=== PATIENT | male | born 1980 | race African-American/Black ===

== ENCOUNTER 2016-11-23 18:34 | Inpatient (IN) | payer OTHER ==
[2016-11-23 18:54] VITALS: BMI 31.0
--- NOTE | 2016-11-23 19:16 | HP ---
COWS - Scale Resting Pulse: 0= [place] 80 or Below Sweatin= Chills/Flushing Restless Observation: 0= Sits Still (xanax) Pupil Size: 1= Pupils >than Normal Bone or Joint Aches: 1= Mild Discomfort Runny Nose/ Eye Tearin= Nasal Congestion GI Upset > 30mins: 1= Stomach Cramp Tremor Observation: 2= Slight Tremor Visible Yawning Observation: 1= 1-2x During Session Anxiety or Irritability: 2=Irritable/Anxious Goose Flesh Skin: 3=Piloerection COWS Score: 13 CIWA Score - CIWA Score Nausea/Vomitin-No Nausea/No Vomiting Muscle Tremors: 3 Anxiety: 3 Agitation: 3 Paroxysmal Sweats: 1-Minimal Palms Moist Orientation: 3-Disoriented Date>2 days Tacttile Disturbances: 0-None Auditory Disturbances: 0-None Visual Disturbances: 0-None Headache: 1-Very Mild CIWA-Ar Total Score: 14 Admission ROS BHS - HPI Chief Complaint: withdrawal sx Allergies/Adverse Reactions: Allergies Allergy/AdvReac Type Severity Reaction Status Date / Time No Known Allergies Allergy Verified 11/23/16 18:45 History of Present Illness: 35 years old male with long history of opiate, xanax nicotine dependence, denies medical issue has schizophrenia - history of auditory hallucination, is admitted to detox Exam Limitations: No Limitations - Ebola screening Have you traveled outside of the country in the last 21 days: No Have you had contact with anyone from an Ebola affected area: No Have you been sick,other than usual withdrawal symptoms: No Do you have a fever: No - Review of Systems Constitutional: Chills, Weight Stable EENT: reports: No Symptoms Reported Respiratory: reports: No Symptoms reported, Cough, SOB with Exertion Cardiac: reports: No Symptoms Reported GI: reports: Poor Fluid Intake, Abdominal cramping : reports: No Symptoms Reported Musculoskeletal: reports: No Symptoms Reported Integumentary: reports: No Symptoms Reported Neuro: reports: Seizure (2015 last episode), Tremors Endocrine: reports: No Symptoms Reported Hematology: reports: No Symptoms Reported Psychiatric: reports: Judgement Intact, Anxious, Depressed Other Systems: Reviewed and Negative Patient History - Patient Medical History Hx Anemia: No Hx Asthma: No Hx Chronic Obstructive Pulmonary Disease (COPD): No Hx Cancer: No Hx Cardiac Disorders: No Hx Congestive Heart Failure: No Hx Hypertension: No Hx Hypercholesterolemia: No Hx Pacemaker: No HX Cerebrovascular Accident: No Hx Seizures: Yes (2016) Hx Dementia: No Hx Diabetes: No Hx Gastrointestinal Disorders: No Hx Liver Disease: No Hx Genitourinary Disorders: No Hx Sexually Transmitted Disorders: No Hx Renal Disease (ESRD): No Hx Thyroid Disease: No Hx Human Immunodeficiency Virus (HIV): No Hx Hepatitis C: No Hx Depression: No Hx Suicide Attempt: No Hx Bipolar Disorder: No Hx Schizophrenia: Yes - Patient Surgical History Past Surgical History: Yes Hx Neurologic Surgery: No Hx Cataract Extraction: No Hx Cardiac Surgery: No Hx Lung Surgery: Yes (chest tube at age 17) Hx Breast Surgery: No Hx Breast Biopsy: No Hx Abdominal Surgery: No Hx Appendectomy: No Hx Cholecystectomy: No Hx Genitourinary Surgery: No Hx Orthopedic Surgery: No Anesthesia Reaction: No - PPD History Previous Implant?: Yes Documented Results: Negative w/o proof Implanted On Prior R Admission?: No PPD to be Administered?: Yes - Smoking Cessation Smoking history: Current every day smoker Have you smoked in the past 12 months: Yes Aproximately how many cigarettes per day: 20 Cigars Per Day: 0 Hx Chewing Tobacco Use: No Initiated information on smoking cessation: Yes 'Breaking Loose' booklet given: 11/23/16 - Substance & Tx. History Hx Alcohol Use: Yes Hx Substance Use: Yes Substance Use Type: Alcohol, Cocaine, Marijuana, Opiates, Tranquilizers Hx Substance Use Treatment: Yes - Substances Abused Heroin Route: Inhalation Frequency: Daily Amount used: 7 bags Age of first use: 19 Date of Last Use: 11/23/16 Alcohol Route: Oral Frequency: Daily Amount used: 2 pints vodka , 6 beer Age of first use: 12 Date of Last Use: 11/23/16 Alprazolam (Xanax) Route: Oral Frequency: Daily Amount used: 14 mg Age of first use: 26 Date of Last Use: 11/23/16 Family Disease History - Family Disease History Family Disease History: Other: Father (no contact), Mother (), Brother ( ) Admission Physical Exam BHS - Vital Signs Vital Signs: Vital Signs - 24 hr 11/23/16 18:51 Temperature 97.1 F L Pulse Rate 75 Respiratory 20 Rate Blood Pressure 95/65 - Physical General Appearance: Yes: Appropriately Dressed, Mild Distress, Tremorous, Irritable, Sweating, Anxious HEENTM: Yes: Hearing grossly Normal, Normal ENT Inspection, Normocephalic, Normal Voice Respiratory: Yes: Chest Non-Tender, Lungs Clear, Normal Breath Sounds, No Respiratory Distress, No Accessory Muscle Use Neck: Yes: Supple, Trachea in good position Breast: Yes: Breasts Symetrical Cardiology: Yes: Regular Rhythm, Regular Rate, S1, S2 Abdominal: Yes: Non Tender, Soft Genitourinary: Yes: Within Normal Limits Back: Yes: Normal Inspection Musculoskeletal: Yes: full range of Motion, Gait Steady Extremities: Yes: Normal Range of Motion, Non-Tender, Tremors Neurological: Yes: Alert, Motor Strength 5/5, Normal Response, Depressed Affect Integumentary: Yes: Warm, Moist Lymphatic: Yes: Within Normal Limits - Diagnostic (1) Alcohol dependence with uncomplicated withdrawal Current Visit: Yes Status: Acute (2) Opioid dependence with withdrawal Current Visit: Yes Status: Acute (3) Sedative, hypnotic or anxiolytic dependence with withdrawal, uncomplicated Current Visit: Yes Status: Acute (4) Nicotine dependence Current Visit: Yes Status: Acute Qualifiers: Nicotine product type: cigarettes Substance use status: in withdrawal Qualified Code(s): F17.213 - Nicotine dependence, cigarettes, with withdrawal (5) Schizophrenia Current Visit: Yes Status: Suspected Qualifiers: Schizophrenia type: disorganized schizophrenia Qualified Code(s): F20.1 - Disorganized schizophrenia Comment: zyprexa trazodone Cleared for Admission S - Detox or Rehab [facility] Level of Care: Medically Managed Detox Regimen/Protocol: Methadone/Valium S Breath Alcohol Content Breath Alcohol Content: 0 Urine Drug Screen - Results Drug Screen Negative: No Urine Drug Screen Results: THC-Marijuana, DRE-Cocaine, OPI-Opiates, BZO- Benzodiazepines, OXY-Oxycodone
[2016-11-23] MEDS ORDERED: diazePAM 5 MG TABLET PO ONE (19:26)
[2016-11-23] MEDS ORDERED: METHADONE HCL 10 MG TABLET (FOR DETOX USE ONLY) PO ONE ×2 (19:26→23:00)
[2016-11-23] MEDS ORDERED: guaiFENesin/D-METHORPHAN HB 10 ML UNIT-DOSE CUPS PO PRN (19:26)
[2016-11-23] MEDS ORDERED: MAG HYDROX/AL HYDROX/SIMETH 30 ML UNIT-DOSE CUP PO PRN (19:26)
[2016-11-23] MEDS ORDERED: P-EPHED 60MG/TRIPROLIDI 2.5MG TABLET PO PRN (19:26)
[2016-11-23] MEDS ORDERED: MENTHOL/PHENOL 1 EACH UD MM PRN (19:26)
[2016-11-23] MEDS ORDERED: ACETAMINOPHEN 325 MG TABLET (FP) PO PRN (19:26)
[2016-11-23] MEDS ORDERED: MAGNESIUM HYDROX 2400MG/30ML ORAL SUSPENSION 30 ML CUP PO PRN (19:26)
[2016-11-23] MEDS ORDERED: IBUPROFEN 400 MG TABLET (FP) PO PRN (19:26)
[2016-11-23] MEDS ORDERED: LOPERAMIDE HCL 2 MG CAPSULE PO PRN (19:26)
[2016-11-23] MEDS ORDERED: MAGNESIUM CITRATE 300 ML BOTTLE PO PRN (19:26)
--- NOTE | 2016-11-23 20:46 | PN ---
S Progress Note Note: ekg showed inverted t in 2,3,avf,v3 asymptomatic no chest pain,no sob,no dizziness Vital Signs Temperature 97.1 F L 11/23/16 18:51 Pulse Rate 75 11/23/16 18:51 Respiratory Rate 20 11/23/16 18:51 Blood Pressure 95/65 11/23/16 18:51 O2 Sat by Pulse Oximetry (%) will repeat ekg in 07.00am vital signs monitoring continue detox regimen
[2016-11-23] MEDS: THIAMINE HCL 100 MG TABLET (FP) PO SCH (22:15)
[2016-11-23] MEDS: diazePAM 5 MG TABLET PO SCH (22:15)
[2016-11-23 22:44] LABS: URINE APPEARANCE CLEAR; URINE BILIRUBIN NEGATIVE (NEGATIVE); URINE BLOOD NEGATIVE (NEGATIVE); URINE COLOR YELLOW; URINE GLUCOSE (UA) NEGATIVE (NEGATIVE); URINE KETONE TRACE (NEGATIVE); URINE NITRITE NEGATIVE (NEGATIVE); URINE PROTEIN NEGATIVE (NEGATIVE); URINE UROBILINOGEN NEGATIVE E.U./dl (0.2-1.0)
[2016-11-23 22:47] LABS: URINE LEUK ESTERASE TRACE (NEGATIVE)
[2016-11-23 22:49] LABS: URINE MUCUS FEW; URINE RBC 2 /hpf (0-3); URINE WBC 5 /hpf (3-5)
[2016-11-24] MEDS: diazePAM 5 MG TABLET PO SCH ×3 (05:47→22:12)
--- NOTE | 2016-11-24 07:00 | PN ---
BHS Progress Note Note: repeat ekg showed inverted t in 3 ,avf,v3 no changed from 11/23/26 asymptomatic no chest pain,no sob,no dizziness
[2016-11-24] MEDS ORDERED: METHADONE HCL 10 MG TABLET (FOR DETOX USE ONLY) PO SCH (10:00)
[2016-11-24] MEDS: NICOTINE 21 MG/24 HOURS TOPICAL PATCH TD SCH (10:11)
[2016-11-24] MEDS: PRENATAL VITAMINS W/ FOLIC ACID TABLET (FP) PO SCH (10:11)
[2016-11-24 10:12] LABS: MCH 29.9 pg (25.7-33.7); MCHC 32.7 g/dl (32.0-35.9); MEAN CELL VOLUME 91.6 fl (80-96); MEAN PLT VOLUME 8.5 fl (7.5-11.1); PLATELET COUNT 188 K/MM3 (134-434); RDW 14.1 % (11.9-15.9); WHITE BLOOD COUNT 7.3 K/mm3 (4.0-10.0)
--- NOTE | 2016-11-24 10:45 | CONSULT ---
[facility] Psychiatric Consult - Data Date of interview: 11/24/16 Admission source: [facility] Identifying data: First admission to [facility] for this 36 y/o AA male seeking detox treatment on for heroin,marijuana,cocainealcohol and benzodiazepine (xanax) dependence.Patient is single without children,homelesss, unemployed and supported on food stamps. Substance Abuse History: - Smoking Cessation. Smoking history: Current every day smoker. Have you smoked in the past 12 months: Yes. Aproximately how many cigarettes per day: 20. Cigars Per Day: 0. Hx Chewing Tobacco Use: No. Initiated information on smoking cessation: Yes. 'Breaking Loose' booklet given : 11/23/16. - Substance & Tx. History. Hx Alcohol Use: Yes. Hx Substance Use : Yes. Substance Use Type: Alcohol, Cocaine, Marijuana, Opiates, Tranquilizers. Hx Substance Use Treatment: Yes. - Substances Abused. Heroin. Route: Inhalation. Frequency: Daily. Amount used: 7 bags. Age of first use: 19. Date of Last Use: 11/23/16. Alcohol. Route: Oral. Frequency: Daily. Amount used: 2 pints vodka , 6 beer. Age of first use: 12. Date of Last Use: 11/23/16. Alprazolam (Xanax). Route: Oral. Frequency: Daily. Amount used: 14 mg. Age of first use: 26. Date of Last Use: 11/23/16. Confirmed by the patient in my interview. Medical History: Patient endorses good general health. Psychiatric History: Patient denies history of mental illness,psychiatric hospitalizations or OPD care.No reported history of suicide attempts.Mr Agrawal could be an unreliable historian in view of [facility] report that mentions PTSD and schizophrenia. Physical/Sexual Abuse/Trauma History: Patient denies. Additional Comment: Urine Drug Screen Results: THC-Marijuana, DRE-Cocaine, OPI- Opiates, BZO-Benzodiazepines, OXY-Oxycodone.Noted. Mental Status Exam - Mental Status Exam Alert and Oriented to: Time, Place, Person Cognitive Function: Good Patient Appearance: Well Groomed Mood: Euthymic (calm) Affect: Normal Range Patient Behavior: Fatigued, Appropriate, Cooperative Speech Pattern: Clear Voice Loudness: Normal Thought Process: Goal Oriented Thought Disorder: Not Present Hallucinations: Denies Suicidal Ideation: Denies Homicidal Ideation: Denies Insight/Judgement: Poor Sleep: Poorly, Difficulty falling asleep Appetite: Good Muscle strength/Tone: Normal Gait/Station: Normal Psychiatric Findings - Problem List ([place] 1, 2,3) (1) Alcohol dependence with uncomplicated withdrawal Current Visit: Yes Status: Acute (2) Opioid dependence with withdrawal Current Visit: Yes Status: Acute (3) Sedative, hypnotic or anxiolytic dependence with withdrawal, uncomplicated Current Visit: Yes Status: Acute (4) Nicotine dependence Current Visit: Yes Status: Acute Qualifiers: Nicotine product type: cigarettes Substance use status: in withdrawal Qualified Code(s): F17.213 - Nicotine dependence, cigarettes, with withdrawal (5) Marijuana dependence Current Visit: Yes Status: Acute (6) Cocaine dependence Current Visit: Yes Status: Acute (7) Insomnia Current Visit: Yes Status: Acute - Initial Treatment Plan Initial Treatment Plan: Psychoeducation.Detoxification.Zolpidem 10 mg po hs prn.Patient made aware of the risk od parasomnias.he agrees with this plan.Observation.
[2016-11-24 11:05] LABS: ALBUMIN 3.1 g/dl (3.4-5.0); ALK PHOS 44 U/L (45-117); ANION GAP 7 (8-16); BILIRUBIN,TOTAL 0.3 mg/dL (0.2-1.0); CALCIUM 8.4 mg/dL (8.5-10.1); CO2 28 mmol/L (21-32); GLUCOSE,RANDOM 79 mg/dL (74-106); SGOT/AST 17 U/L (15-37); SGPT/ALT 21 U/L (12-78); TOT PROT 5.7 g/dl (6.4-8.2)
--- NOTE | 2016-11-24 12:13 | PN ---
[facility] CIWA - CIWA Score Nausea/Vomitin-No Nausea/No Vomiting Muscle Tremors: 4-Moderate,w/Arms Extend Anxiety: 4-Mod. Anxious/Guarded Agitation: 4-Moderately Restless Paroxysmal Sweats: 1-Minimal Palms Moist Orientation: 0-Oriented Tacttile Disturbances: 3-Moderate Itch/Numb/Burn Auditory Disturbances: 0-None Visual Disturbances: 0-None Headache: 0-None Present CIWA-Ar Total Score: 16 BHS COWS - Scale Resting Pulse: 0= [place] 80 or Below Sweatin= Chills/Flushing Restless Observation: 3= Extraneous Movement Pupil Size: 2= Moderately Dilated Bone or Joint Aches: 4=Acute Joint/Muscle Pain Runny Nose/ Eye Tearin= Nasal Congestion GI Upset > 30mins: 1= Stomach Cramp Tremor Observation of Outstretched Hands: 1= Tremor [place], Not Seen Yawning Observation: 1= 1-2x During Session Anxiety or Irritability: 2=Irritable/Anxious Goose Flesh Skin: 0=Smooth Skin COWS Score: 16 [facility] Progress Note (SOAP) Subjective: ANXIETY,SWEATS,IRRITABILITY,FATIGUE. Objective: 11/24/16 12:11 Vital Signs Temperature 96.6 F L 11/24/16 09:17 Pulse Rate 67 11/24/16 09:17 Respiratory Rate 20 11/24/16 09:17 Blood Pressure 99/67 11/24/16 09:17 O2 Sat by Pulse Oximetry (%) Laboratory Last Values WBC 7.3 K/mm3 (4.0-10.0) 11/24/16 07:00 RBC 4.23 M/mm3 (4.00-5.60) 11/24/16 07:00 Hgb 12.7 GM/dL (11.7-16.9) 11/24/16 07:00 Hct 38.7 % (35.4-49) 11/24/16 07:00 MCV 91.6 fl (80-96) 11/24/16 07:00 MCHC 32.7 g/dl (32.0-35.9) 11/24/16 07:00 RDW 14.1 % (11.9-15.9) 11/24/16 07:00 Plt Count 188 K/MM3 (134-434) 11/24/16 07:00 MPV 8.5 fl (7.5-11.1) 11/24/16 07:00 Sodium 141 mmol/L (136-145) 11/24/16 07:00 Potassium 4.1 mmol/L (3.5-5.1) 11/24/16 07:00 Chloride 106 mmol/L (98-107) 11/24/16 07:00 Carbon Dioxide 28 mmol/L (21-32) 11/24/16 07:00 Anion Gap 7 (8-16) L 11/24/16 07:00 BUN 11 mg/dL (7-18) 11/24/16 07:00 Creatinine 1.0 mg/dL (0.7-1.3) 11/24/16 07:00 Creat Clearance w eGFR > 60 (>60) 11/24/16 07:00 Random Glucose 79 mg/dL (74-106) 11/24/16 07:00 Calcium 8.4 mg/dL (8.5-10.1) L 11/24/16 07:00 Total Bilirubin 0.3 mg/dL (0.2-1.0) 11/24/16 07:00 AST 17 U/L (15-37) 11/24/16 07:00 ALT 21 U/L (12-78) 11/24/16 07:00 Alkaline Phosphatase 44 U/L (45-117) L 11/24/16 07:00 Total Protein 5.7 g/dl (6.4-8.2) L 11/24/16 07:00 Albumin 3.1 g/dl (3.4-5.0) L 11/24/16 07:00 Urine Color Yellow 11/23/16 19:38 Urine Appearance Clear 11/23/16 19:38 Urine pH 5.0 (5.0-8.0) 11/23/16 19:38 Ur Specific [place] 1.024 (1.001-1.035) 11/23/16 19:38 Urine Protein Negative (NEGATIVE) 11/23/16 19:38 Urine Glucose (UA) Negative (NEGATIVE) 11/23/16 19:38 Urine Ketones Trace (NEGATIVE) H 11/23/16 19:38 Urine Blood Negative (NEGATIVE) 11/23/16 19:38 Urine Nitrite Negative (NEGATIVE) 11/23/16 19:38 Urine Bilirubin Negative (NEGATIVE) 11/23/16 19:38 Urine Urobilinogen Negative E.U./dl (0.2-1.0) 11/23/16 19:38 Ur Leukocyte Esterase Trace (NEGATIVE) H 11/23/16 19:38 Urine RBC 2 /hpf (0-3) 11/23/16 19:38 Urine WBC 5 /hpf (3-5) 11/23/16 19:38 Ur Epithelial Cells Rare /hpf (FEW) 11/23/16 19:38 Urine Mucus Few 11/23/16 19:38 LABS NOTED Assessment: 11/24/16 12:13 WITHDRAWAL SX Plan: CONTINUE DETOX
--- NOTE | 2016-11-24 13:55 | EKG ---
Test Reason : Blood Pressure : / mmHG Vent. Rate : 070 BPM Atrial Rate : 070 BPM P-R Int : 130 ms QRS Dur : 090 ms QT Int : 386 ms P-R-T Axes : 056 008 -39 degrees QTc Int : 416 ms NORMAL SINUS RHYTHM SEPTAL INFARCT , AGE UNDETERMINED ABNORMAL ECG NO PREVIOUS ECGS AVAILABLE Confirmed by ELISABETH GARDINER MD ([id number]) on 11/24/2016 1:54:30 PM Referred By: Confirmed By:ELISABETH GARDINER MD
--- NOTE | 2016-11-24 13:56 | EKG ---
Test Reason : Blood Pressure : / mmHG Vent. Rate : 062 BPM Atrial Rate : 062 BPM P-R Int : 140 ms QRS Dur : 100 ms QT Int : 420 ms P-R-T Axes : 053 -08 -37 degrees QTc Int : 426 ms NORMAL SINUS RHYTHM INCOMPLETE RIGHT BUNDLE BRANCH BLOCK SEPTAL INFARCT (CITED ON OR BEFORE 23-NOV-2016) ABNORMAL ECG WHEN COMPARED WITH ECG OF 23-NOV-2016 20:08, QUESTIONABLE CHANGE IN INITIAL FORCES OF SEPTAL LEADS Confirmed by ELISABETH GARDINER MD ([id number]) on 11/24/2016 1:56:26 PM Referred By: Confirmed By:ELISABETH GARDINER MD
[2016-11-24 19:23] LABS: URINE APPEARANCE CLEAR; URINE BILIRUBIN NEGATIVE (NEGATIVE); URINE BLOOD NEGATIVE (NEGATIVE); URINE COLOR STRAW; URINE GLUCOSE (UA) NEGATIVE (NEGATIVE); URINE KETONE NEGATIVE (NEGATIVE); URINE NITRITE NEGATIVE (NEGATIVE); URINE PROTEIN NEGATIVE (NEGATIVE); URINE UROBILINOGEN NEGATIVE E.U./dl (0.2-1.0)
[2016-11-24 19:25] LABS: URINE LEUK ESTERASE TRACE (NEGATIVE)
[2016-11-24 19:28] LABS: URINE RBC <1 /hpf (0-3); URINE WBC 1 /hpf (3-5)
[2016-11-24] MEDS: THIAMINE HCL 100 MG TABLET (FP) PO SCH (22:12)
[2016-11-24] MEDS: diphenhydrAMINE HCL 50 MG CAPSULE PO PRN (23:40)
[2016-11-25] MEDS: diazePAM 5 MG TABLET PO PRN ×3 (00:40→17:23)
[2016-11-25] MEDS: diazePAM 5 MG TABLET PO SCH ×2 (10:07→22:20)
[2016-11-25] MEDS: NICOTINE 21 MG/24 HOURS TOPICAL PATCH TD SCH (10:07)
[2016-11-25] MEDS: PRENATAL VITAMINS W/ FOLIC ACID TABLET (FP) PO SCH (10:07)
[2016-11-25] MEDS: METHADONE HCL 5 MG TABLET (FOR DETOX USE ONLY) PO SCH (10:07)
--- NOTE | 2016-11-25 10:11 | PN ---
[facility] CIWA - CIWA Score Nausea/Vomitin-No Nausea/No Vomiting Muscle Tremors: 3 Anxiety: 4-Mod. Anxious/Guarded Agitation: 3 Paroxysmal Sweats: 3 Orientation: 0-Oriented Tacttile Disturbances: 1-Very Mild Itch/Numbness Auditory Disturbances: 0-None Visual Disturbances: 0-None Headache: 0-None Present CIWA-Ar Total Score: 14 S COWS - Scale Resting Pulse: 0= [place] 80 or Below Sweatin=Flushed/Facial Moisture Restless Observation: 1= Difficult to Sit Still Pupil Size: 0= Normal to Room Light Bone or Joint Aches: 2= Severe Diffuse Aches Runny Nose/ Eye Tearin= Runny Nose/Eyes GI Upset > 30mins: 2= Nausea/Diarrhea Tremor Observation of Outstretched Hands: 2= Slight Tremor Visible Yawning Observation: 1= 1-2x During Session Anxiety or Irritability: 2=Irritable/Anxious Goose Flesh Skin: 0=Smooth Skin COWS Score: 14 [facility] Progress Note (SOAP) Subjective: Anxiety,tremors,sweating,interrupted sleep,restless Objective: 11/25/16 10:09 Vital Signs - 8 hr 11/25/16 11/25/16 11/25/16 03:30 06:04 09:09 Temperature 96.2 F L 97.1 F L Pulse Rate 60 69 Respiratory 18 18 18 Rate Blood Pressure 96/65 112/68 Laboratory Tests 11/23/16 11/23/16 11/24/16 07:00 19:38 07:00 WBC 7.3 RBC 4.23 Hgb 12.7 Hct 38.7 MCV 91.6 MCHC 32.7 RDW 14.1 Plt Count 188 MPV 8.5 Sodium Potassium Chloride Carbon Dioxide Anion Gap BUN Creatinine Creat Clearance w eGFR Random Glucose Calcium Total Bilirubin AST ALT Alkaline Phosphatase Total Protein Albumin Urine Color Yellow Urine Appearance Clear Urine pH 5.0 Ur Specific [place] 1.024 Urine Protein Negative Urine Glucose (UA) Negative Urine Ketones Trace H Urine Blood Negative Urine Nitrite Negative Urine Bilirubin Negative Urine Urobilinogen Negative Ur Leukocyte Esterase Trace H Urine RBC 2 Urine WBC 5 Ur Epithelial Cells Rare Urine Mucus Few RPR Titer Hepatitis C Antibody <0.1 11/24/16 11/24/16 11/24/16 07:00 07:00 14:00 WBC RBC Hgb Hct MCV MCHC RDW Plt Count MPV Sodium 141 Potassium 4.1 Chloride 106 Carbon Dioxide 28 Anion Gap 7 L BUN 11 Creatinine 1.0 Creat Clearance w eGFR > 60 Random Glucose 79 Calcium 8.4 L Total Bilirubin 0.3 AST 17 ALT 21 Alkaline Phosphatase 44 L Total Protein 5.7 L Albumin 3.1 L Urine Color Straw Urine Appearance Clear Urine pH 6.0 Ur Specific [place] 1.005 Urine Protein Negative Urine Glucose (UA) Negative Urine Ketones Negative Urine Blood Negative Urine Nitrite Negative Urine Bilirubin Negative Urine Urobilinogen Negative Ur Leukocyte Esterase Trace H Urine RBC <1 Urine WBC 1 Ur Epithelial Cells Rare Urine Mucus RPR Titer Nonreactive Hepatitis C Antibody labs noted Assessment: 11/25/16 10:10 Withdrawal sx. Plan: Continue detox
--- NOTE | 2016-11-25 14:14 | EKG ---
Test Reason : Blood Pressure : / mmHG Vent. Rate : 068 BPM Atrial Rate : 068 BPM P-R Int : 128 ms QRS Dur : 104 ms QT Int : 386 ms P-R-T Axes : 046 -13 -39 degrees QTc Int : 410 ms NORMAL SINUS RHYTHM INCOMPLETE RIGHT BUNDLE BRANCH BLOCK ANTEROSEPTAL INFARCT (CITED ON OR BEFORE 23-NOV-2016) T WAVE ABNORMALITY, CONSIDER LATERAL ISCHEMIA ABNORMAL ECG WHEN COMPARED WITH ECG OF 24-NOV-2016 06:33, NO SIGNIFICANT CHANGE WAS FOUND Confirmed by MODESTO PLATT MD ([id number]) on 11/25/2016 2:14:26 PM Referred By: Confirmed By:MODESTO PLATT MD
[2016-11-25] MEDS: NICOTINE POLACRILEX 4 MG GUM BC PRN (18:18)
[2016-11-25] MEDS: THIAMINE HCL 100 MG TABLET (FP) PO SCH (22:20)
[2016-11-25] MEDS: diphenhydrAMINE HCL 50 MG CAPSULE PO PRN (22:21)
[2016-11-26] MEDS: diazePAM 5 MG TABLET PO PRN ×2 (02:27→17:19)
[2016-11-26] MEDS: METHADONE HCL 5 MG TABLET (FOR DETOX USE ONLY) PO SCH (10:19)
[2016-11-26] MEDS: PRENATAL VITAMINS W/ FOLIC ACID TABLET (FP) PO SCH (10:19)
[2016-11-26] MEDS: diazePAM 5 MG TABLET PO SCH ×2 (10:19→22:17)
[2016-11-26] MEDS: NICOTINE 21 MG/24 HOURS TOPICAL PATCH TD SCH (10:19)
[2016-11-26] MEDS: NICOTINE POLACRILEX 4 MG GUM BC PRN (10:20)
--- NOTE | 2016-11-26 12:00 | PN ---
[facility] Progress Note (SOAP) Subjective: Sweating, Tremors, Body Aches, Interrupted sleep. Objective: PT. A & O X 1 (DISORIENTED ABOUT DAY/DATE AND ABOUT LOCATION). 11/26/16 11:58 Vital Signs Temperature 96.1 F L 11/26/16 09:34 Pulse Rate 55 L 11/26/16 09:34 Respiratory Rate 18 11/26/16 09:34 Blood Pressure 109/69 11/26/16 09:34 O2 Sat by Pulse Oximetry (%) Laboratory Last Values WBC 7.3 K/mm3 (4.0-10.0) 11/24/16 07:00 RBC 4.23 M/mm3 (4.00-5.60) 11/24/16 07:00 Hgb 12.7 GM/dL (11.7-16.9) 11/24/16 07:00 Hct 38.7 % (35.4-49) 11/24/16 07:00 MCV 91.6 fl (80-96) 11/24/16 07:00 MCHC 32.7 g/dl (32.0-35.9) 11/24/16 07:00 RDW 14.1 % (11.9-15.9) 11/24/16 07:00 Plt Count 188 K/MM3 (134-434) 11/24/16 07:00 MPV 8.5 fl (7.5-11.1) 11/24/16 07:00 Sodium 141 mmol/L (136-145) 11/24/16 07:00 Potassium 4.1 mmol/L (3.5-5.1) 11/24/16 07:00 Chloride 106 mmol/L (98-107) 11/24/16 07:00 Carbon Dioxide 28 mmol/L (21-32) 11/24/16 07:00 Anion Gap 7 (8-16) L 11/24/16 07:00 BUN 11 mg/dL (7-18) 11/24/16 07:00 Creatinine 1.0 mg/dL (0.7-1.3) 11/24/16 07:00 Creat Clearance w eGFR > 60 (>60) 11/24/16 07:00 Random Glucose 79 mg/dL (74-106) 11/24/16 07:00 Calcium 8.4 mg/dL (8.5-10.1) L 11/24/16 07:00 Total Bilirubin 0.3 mg/dL (0.2-1.0) 11/24/16 07:00 AST 17 U/L (15-37) 11/24/16 07:00 ALT 21 U/L (12-78) 11/24/16 07:00 Alkaline Phosphatase 44 U/L (45-117) L 11/24/16 07:00 Total Protein 5.7 g/dl (6.4-8.2) L 11/24/16 07:00 Albumin 3.1 g/dl (3.4-5.0) L 11/24/16 07:00 Urine Color Straw 11/24/16 14:00 Urine Appearance Clear 11/24/16 14:00 Urine pH 6.0 (5.0-8.0) 11/24/16 14:00 Ur Specific [place] 1.005 (1.001-1.035) 11/24/16 14:00 Urine Protein Negative (NEGATIVE) 11/24/16 14:00 Urine Glucose (UA) Negative (NEGATIVE) 11/24/16 14:00 Urine Ketones Negative (NEGATIVE) 11/24/16 14:00 Urine Blood Negative (NEGATIVE) 11/24/16 14:00 Urine Nitrite Negative (NEGATIVE) 11/24/16 14:00 Urine Bilirubin Negative (NEGATIVE) 11/24/16 14:00 Urine Urobilinogen Negative E.U./dl (0.2-1.0) 11/24/16 14:00 Ur Leukocyte Esterase Trace (NEGATIVE) H 11/24/16 14:00 Urine RBC <1 /hpf (0-3) 11/24/16 14:00 Urine WBC 1 /hpf (3-5) 11/24/16 14:00 Ur Epithelial Cells Rare /hpf (FEW) 11/24/16 14:00 Urine Mucus Few 11/23/16 19:38 RPR Titer Nonreactive (NONREACTIVE) 11/24/16 07:00 Hepatitis C Antibody <0.1 s/co ratio (0.0-0.9) 11/23/16 07:00 LABS NOTED. Assessment: 11/26/16 11:59 WITHDRAWAL SYMPTOMS. Plan: CONTINUE DETOX.
[2016-11-26] MEDS: diphenhydrAMINE HCL 50 MG CAPSULE PO PRN (22:17)
[2016-11-26] MEDS: THIAMINE HCL 100 MG TABLET (FP) PO SCH (22:17)
[2016-11-26 23:01] VITALS: BP 111/70; PULSE 70; TEMP 97.3
[2016-11-27] MEDS ORDERED: diazePAM 5 MG TABLET PO SCH (10:00)
[2016-11-27] MEDS ORDERED: METHADONE HCL 10 MG TABLET (FOR DETOX USE ONLY) PO SCH (10:00)
--- NOTE | 2016-11-27 13:53 | DS ---
[facility] Detox Discharge Summary Admission Date: 11/23/16 Discharge Date: 11/27/16 - History Present History: Alcohol Dependence, Cannabis Dependence, Cocaine Dependence, Opioid Dependence, Sedative Dependence Pertinent Past History: Denies - Physical Exam Results Vital Signs: Vital Signs Temperature 97.3 F L 11/26/16 23:01 Pulse Rate 70 11/26/16 23:01 Respiratory Rate 18 11/26/16 23:01 Blood Pressure 111/70 11/26/16 23:01 O2 Sat by Pulse Oximetry (%) Pertinent Admission Physical Exam Findings: Withdrawal sx. Laboratory Tests 11/23/16 11/23/16 11/24/16 07:00 19:38 07:00 WBC 7.3 RBC 4.23 Hgb 12.7 Hct 38.7 MCV 91.6 MCHC 32.7 RDW 14.1 Plt Count 188 MPV 8.5 Sodium Potassium Chloride Carbon Dioxide Anion Gap BUN Creatinine Creat Clearance w eGFR Random Glucose Calcium Total Bilirubin AST ALT Alkaline Phosphatase Total Protein Albumin Urine Color Yellow Urine Appearance Clear Urine pH 5.0 Ur Specific [place] 1.024 Urine Protein Negative Urine Glucose (UA) Negative Urine Ketones Trace H Urine Blood Negative Urine Nitrite Negative Urine Bilirubin Negative Urine Urobilinogen Negative Ur Leukocyte Esterase Trace H Urine RBC 2 Urine WBC 5 Ur Epithelial Cells Rare Urine Mucus Few RPR Titer Hepatitis C Antibody <0.1 11/24/16 11/24/16 11/24/16 07:00 07:00 14:00 WBC RBC Hgb Hct MCV MCHC RDW Plt Count MPV Sodium 141 Potassium 4.1 Chloride 106 Carbon Dioxide 28 Anion Gap 7 L BUN 11 Creatinine 1.0 Creat Clearance w eGFR > 60 Random Glucose 79 Calcium 8.4 L Total Bilirubin 0.3 AST 17 ALT 21 Alkaline Phosphatase 44 L Total Protein 5.7 L Albumin 3.1 L Urine Color Straw Urine Appearance Clear Urine pH 6.0 Ur Specific [place] 1.005 Urine Protein Negative Urine Glucose (UA) Negative Urine Ketones Negative Urine Blood Negative Urine Nitrite Negative Urine Bilirubin Negative Urine Urobilinogen Negative Ur Leukocyte Esterase Trace H Urine RBC <1 Urine WBC 1 Ur Epithelial Cells Rare Urine Mucus RPR Titer Nonreactive Hepatitis C Antibody labs noted - Medication Discharge Medications: Ambulatory Orders NK [No Known Home Medication] 11/23/16 - Diagnosis (1) Alcohol dependence with uncomplicated withdrawal Status: Acute (2) Insomnia Status: Acute (3) Nicotine dependence Status: Acute Qualifiers: Nicotine product type: cigarettes Substance use status: in withdrawal Qualified Code(s): F17.213 - Nicotine dependence, cigarettes, with withdrawal (4) Opioid dependence with withdrawal Status: Acute (5) Sedative, hypnotic or anxiolytic dependence with withdrawal, uncomplicated Status: Acute (6) Cocaine dependence Status: Chronic (7) Marijuana dependence Status: Chronic - AMA Did Patient Leave Against Medical Advice: Yes
[2016-11-28] MEDS ORDERED: METHADONE HCL 5 MG TABLET (FOR DETOX USE ONLY) PO SCH (06:00)
== END 2016-11-27 01:19 | disposition left against medical advice (07) | DRG 770 ==
LOC: YASAS 18:34 → Y3N 19:10
PROVIDERS: ADMIT Internal Medicine; ATTEND Internal Medicine
PROC: HZ2ZZZZ Detoxification Services for Substance Abuse Treatment (ICD-10-PCS; principal; 2016-11-27)
DX: F11.23 Opioid dependence with withdrawal (principal); F13.230 Sedative, hypnotic or anxiolytic dependence with withdrawal, uncomplicated; F10.230 Alcohol dependence with withdrawal, uncomplicated; F14.20 Cocaine dependence, uncomplicated; F12.20 Cannabis dependence, uncomplicated; F17.213 Nicotine dependence, cigarettes, with withdrawal; F20.1 Disorganized schizophrenia; G47.00 Insomnia, unspecified
CPT/HCPCS: 36415; 80053; 81003; 81015; 85027; 86593; 93005; 93010